=== PATIENT | female | born 1965 | race American Indian/Alaskan Native ===

== ENCOUNTER 2019-06-14 00:31 | Emergency (ER) | payer SELFPAY ==
[2019-06-14] MEDS ORDERED: SODIUM CHLORIDE 0.9% 500 ML 500 ML IV ONE (00:48)
[2019-06-14] MEDS ORDERED: ONDANSETRON 4 MG/2 ML INJ IV ONE (00:48)
[2019-06-14] MEDS ORDERED: MORPHINE 4 MG/1 ML INJ IV ONE (00:48)
--- NOTE | 2019-06-14 00:50 | Emergency Department Report ---
<GAUDENCIO CHAN - Last Filed: 06/14/19 02:53> ED Abdominal Pain HPI - General Chief Complaint: Abdominal Pain Stated Complaint: ABDOMINAL PAIN Time Seen by Provider: 06/14/19 00:33 Source: patient, EMS (Verbal report received from EMS. EMS documentation not available at time of chart dictation ), RN notes reviewed, old records reviewed Mode of arrival: Stretcher Limitations: Physical Limitation - History of Present Illness Initial Comments: Patient is an obese 54-year-old female who is not known to myself previously, brought to the hospital by EMS with a complaint of abdominal pain. Her past medical history includes hypertension, seizure and reactive airway disease. The patient indicates her whole abdomen is hurting her. She points to her left mid flank as the worst area of pain, and also simultaneously points to her right mid abdomen. She is not able to describe the qualitative nature of the pain. She is not able to describe exacerbating or relieving factors. She does not report any history of trauma. She makes no complaint of headache, neck pain, chest pain, shortness of breath, focal extremity weakness and or numbness, or irritative/obstructive urinary symptoms. MD Complaint: abdominal pain -: Gradual, hour(s) Radiation: other Migration to: other Quality: other Consistency: other Improves With: other Worsens With: other Associated Symptoms: other - Related Data Home Medications Medication Instructions Recorded Confirmed Last Taken Albuterol Sulfate [Ventolin HFA] 2 puff IH Q4H PRN 02/25/13 02/25/13 02/25/13 Previous Rx's Medication Instructions Recorded Last Taken Type Fluticasone/Salmeterol [Advair 1 puff IH BID #1 disk.w.dev 02/25/13 Unknown Rx Diskus 250-50 mcg] ALBUTEROL NEB's [Proventil 0.083% 2.5 mg IH Q4H PRN #1 box 03/15/13 Unknown Rx NEBS] Prednisone 20 mg PO QDAY #10 tablet 03/15/13 Unknown Rx Acetaminophen [Non-Aspirin Extra 500 mg PO Q6HR PRN #30 tablet 06/14/19 Unknown Rx Strength] Ibuprofen [Motrin] 400 mg PO Q8H PRN #30 tablet 06/14/19 Unknown Rx Metoclopramide [Reglan] 10 mg PO QID PRN #30 tablet 06/14/19 Unknown Rx Allergies Allergy/AdvReac Type Severity Reaction Status Date / Time No Known Allergies Allergy Verified 04/18/13 14:02 ED Review of Systems Constitutional: malaise Eyes: as per HPI ENT: as per HPI Respiratory: see HPI Cardiovascular: denies: syncope Gastrointestinal: abdominal pain, nausea, vomiting Musculoskeletal: as per HPI Skin: as per HPI Neurological: as per HPI Psychiatric: as per HPI Hematological/Lymphatic: as per HPI ED Past Medical Hx - Past Medical History Hx Hypertension: Yes Hx Seizures: Yes Hx Asthma: Yes - Surgical History Past Surgical History?: No - Social History Smoking Status: Never Smoker - Medications Home Medications: Home Medications Medication Instructions Recorded Confirmed Last Taken Type Albuterol Sulfate [Ventolin HFA] 2 puff IH Q4H PRN 02/25/13 02/25/13 02/25/13 History Fluticasone/Salmeterol [Advair 1 puff IH BID #1 disk.w.dev 02/25/13 Unknown Rx Diskus 250-50 mcg] ALBUTEROL NEB's [Proventil 0.083% 2.5 mg IH Q4H PRN #1 box 03/15/13 Unknown Rx NEBS] Prednisone 20 mg PO QDAY #10 tablet 03/15/13 Unknown Rx Acetaminophen [Non-Aspirin Extra 500 mg PO Q6HR PRN #30 tablet 06/14/19 Unknown Rx Strength] Ibuprofen [Motrin] 400 mg PO Q8H PRN #30 tablet 06/14/19 Unknown Rx Metoclopramide [Reglan] 10 mg PO QID PRN #30 tablet 06/14/19 Unknown Rx ED Physical Exam - General Limitations: Other (Patient is a poor historian) General appearance: alert, anxious, in distress, obese - Head Head exam: Present: atraumatic, normocephalic - Eye Eye exam: Present: normal appearance, EOMI. Absent: nystagmus - ENT ENT exam: Present: normal exam, normal orophraynx, mucous membranes moist, normal external ear exam - Neck Neck exam: Present: normal inspection, full ROM. Absent: tenderness, meningismus - Respiratory Respiratory exam: Present: normal lung sounds bilaterally. Absent: respiratory distress - Cardiovascular Cardiovascular Exam: Present: regular rate, normal rhythm, normal heart sounds. Absent: bradycardia, tachycardia, irregular rhythm, systolic murmur, diastolic murmur, rubs, gallop - GI/Abdominal GI/Abdominal exam: Present: soft. Absent: distended, tenderness, guarding, rebound, rigid, pulsatile mass - Extremities Exam Extremities exam: Present: normal inspection, full ROM, other (2+ pulses noted in the bilateral upper and lower extremities. There is no palpable cord. negative Homans sign. Muscular compartments are soft. The pelvis is stable.). Absent: pedal edema, calf tenderness - Back Exam Back exam: Present: normal inspection, full ROM. Absent: tenderness, CVA tenderness (R), CVA tenderness (L), paraspinal tenderness, vertebral tenderness - Neurological Exam Neurological exam: Present: alert, other (There is no facial droop. The tongue is midline. Extraocular movements are intact bilaterally. There is 5 out of 5 strength in bilateral upper and lower extremities. Sensation is intact to light touch bilateral upper and lower extremities. ) - Psychiatric Psychiatric exam: Present: anxious - Skin Skin exam: Present: warm, dry, intact, normal color. Absent: rash ED Course - Reevaluation(s) Reevaluation #1: 06/14/19 01:44 Differential diagnosis, including not limited to: Cholecystitis, pancreatitis, pyelonephritis, colitis, diverticulitis, constipation, obstruction, perforated viscus, urinary tract infection Assessment and plan: 54-year-old female with poorly characterized abdominal pain, who appears to be in moderate distress. Symptoms are improved with morphine and Zofran. Check laboratory studies, EKG, CT scan abdomen pelvis, and reassess. Reevaluation #2: 06/14/19 02:54 CT scan reviewed and appreciated. Right upper quadrant ultrasound is ordered. Urinalysis pending, repeat EKG, repeat troponin pending. care will be transferred to Dr Rolando Smith to follow up ultrasound, urinalysis, repeat troponin and reassess patient's comfort. ED Medical Decision Making - Lab Data Result diagrams: 06/14/19 01:19 06/14/19 01:19 Lab Results 06/14/19 Range/Units 01:19 WBC 10.3 (4.5-11.0) K/mm3 RBC 4.39 (3.65-5.03) M/mm3 Hgb 12.6 (10.1-14.3) gm/dl Hct 38.0 (30.3-42.9) % MCV 87 (79-97) fl MCH 29 (28-32) pg MCHC 33 (30-34) % RDW 15.1 (13.2-15.2) % Lymph % (Auto) 12.1 L (13.4-35.0) % [place] % (Auto) 5.6 (0.0-7.3) % Eos % (Auto) 1.2 (0.0-4.3) % Baso % (Auto) 0.5 (0.0-1.8) % Lymph # 1.3 (1.2-5.4) K/mm3 [place] # 0.6 (0.0-0.8) K/mm3 Eos # 0.1 (0.0-0.4) K/mm3 Baso # 0.1 (0.0-0.1) K/mm3 Seg Neutrophils % 80.6 H (40.0-70.0) % Seg Neutrophils # 8.3 H (1.8-7.7) K/mm3 Vital Signs 06/14/19 01:00 Pulse Rate 64 Respiratory 25 H Rate Blood Pressure 174/80 [Right] O2 Sat by Pulse 99 Oximetry Lab Results 06/14/19 06/14/19 06/14/19 Range/Units 01:19 01:19 01:19 WBC 10.3 (4.5-11.0) K/mm3 RBC 4.39 (3.65-5.03) M/mm3 Hgb 12.6 (10.1-14.3) gm/dl Hct 38.0 (30.3-42.9) % MCV 87 (79-97) fl MCH 29 (28-32) pg MCHC 33 (30-34) % RDW 15.1 (13.2-15.2) % Lymph % (Auto) 12.1 L (13.4-35.0) % [place] % (Auto) 5.6 (0.0-7.3) % Eos % (Auto) 1.2 (0.0-4.3) % Baso % (Auto) 0.5 (0.0-1.8) % Lymph # 1.3 (1.2-5.4) K/mm3 [place] # 0.6 (0.0-0.8) K/mm3 Eos # 0.1 (0.0-0.4) K/mm3 Baso # 0.1 (0.0-0.1) K/mm3 Seg Neutrophils % 80.6 H (40.0-70.0) % Seg Neutrophils # 8.3 H (1.8-7.7) K/mm3 PT 12.3 (12.2-14.9) Sec. INR 0.91 (0.87-1.13) Sodium 139 (137-145) mmol/L Potassium 4.2 (3.6-5.0) mmol/L Chloride 100.0 (98-107) mmol/L Carbon Dioxide 19 L (22-30) mmol/L Anion Gap 24 mmol/L BUN 18 H (7-17) mg/dL Creatinine 0.8 (0.7-1.2) mg/dL Estimated GFR > 60 ml/min BUN/Creatinine Ratio 23 % Glucose 145 H (65-100) mg/dL Calcium 9.4 (8.4-10.2) mg/dL Magnesium 2.10 (1.7-2.3) mg/dL Total Bilirubin 0.20 (0.1-1.2) mg/dL Direct Bilirubin < 0.2 (0-0.2) mg/dL Indirect Bilirubin 0.0 mg/dL ALT 9 (7-56) units/L Alkaline Phosphatase 120 (35-129) units/L Total Creatine Kinase 137 H (30-135) units/L Troponin T < 0.010 (0.00-0.029) ng/mL Total Protein 8.0 (6.3-8.2) g/dL Albumin 4.3 (3.9-5) g/dL Albumin/Globulin Ratio 1.2 % Lipase 48 (13-60) units/L - EKG Data -: EKG Interpreted by [facility] EKG shows normal: sinus rhythm Rate: normal - EKG Data When compared to previous EKG there are: previous EKG unavailable 06/14/19 02:19 Sinus rhythm, 65 bpm, normal axis, QTC 445 ms, motion artifact, low voltage lateral leads, no prior for comparison, not consistent with ST elevation myocardial infarction. - Radiology Data Radiology results: pending, report reviewed, image reviewed Print Report Referring Physician: GAUDENCIO CHAN Patient Name: DAVID GREGG Date of : 1965 Sex: Female Report Date: 2019-06-14 Report Status: Finalized Findings [facility] [address] [place] [address] Cat Scan Report Signed Patient: DAVID GREGG MR#: [id number] : 1965 Acct:[id number] Age/Sex: 54 / F ADM Date: 06/14/19 Loc: ED Attending Dr: Ordering Physician: GAUDENCIO CHAN MD Date of Service: 06/14/19 Procedure(s): CT abdomen pelvis w con Accession Number(s): [id number] cc: GAUDENCIO CHAN MD CT ABDOMEN AND PELVIS WITH IV CONTRAST INDICATION: Abdominal Pain. COMPARISON: None available. TECHNIQUE: All CT scans at this facility use dose modulation, automated exposure control, iterative reconstruction or weight based dosing, when appropriate, to reduce radiation dose to as low as reasonably achievable. FINDINGS: Lung Bases: There is a 3-4 mm noncalcified nodule in the left lower lobe on series 2 image 28. Skeletal System: No acute abnormality. ABDOMEN: Liver: No significant abnormality. Gallbladder: There are 2 stones in the gallbladder. No gallbladder wall edema or pericholecystic fluid. Bile Ducts: No significant abnormality. Pancreas: No significant abnormality. Spleen: No significant abnormality. Adrenals: No significant abnormality. Right Kidney: No significant abnormality. Left Kidney: No significant abnormality. Upper GI tract: No significant abnormality. Lymph Nodes: No significant adenopathy. Aorta: No significant abnormality. Additional Findings: No significant abnormality. PELVIS: Colon: No acute abnormality. Urinary Bladder and Distal Ureters: No significant abnormality. Appendix: No significant abnormality. Lymph Nodes: No significant adenopathy. Additional Findings: None. IMPRESSION: 1. No acute process in the abdomen or pelvis. 2. Cholelithiasis. 3. 3-4 mm noncalcified left lower lobe pulmonary nodule. See below for follow-up recommendations. INCIDENTAL PULMONARY NODULE RECOMMENDATION Recommendation: Solid Nodule size <6 mm -- Single or Multiple - Low Risk Patient: No routine follow-up - High Risk Patient: Optional CT at 12 months Note These recommendations do not apply to lung cancer screening, patients with immunosuppression, or patients with known primary cancer. Note Newly detected indeterminate nodule in persons 35 years of age or older. Persons under the age of 35 should not receive follow-up unless there is a known primary cancer. Note A Perifissural Nodule is a fissure-attached/subpleural, homogeneous, solid n odule that had smooth margins and an oval, lentiform, or triangular shape. They represent about 20% of nodules detected in lung cancer screening, are invariably benign, and do not require follow-up. Nodules 10 mm or larger (or those with suspicious features) will continue to be managed based on the size criteria. Low Risk Patient -- minimal or absent history of smoking and of other known risk factors. High Risk Patient -- history of smoking or of other known risk factors. Nodule dimensions are average of long and short axes, rounded to the nearest millimeter. Based on 2017 Fleischner Society Guidelines found in Radiology 2017 284:228-243. https://doi.org/10.1148/radiol.3012359437 https://www .ncbi.nlm.nih.gov/pmc/articles/XNS6617556/ Signer Name: Maxim Castillo MD Signed: 06/14/2019 2:46 AM Workstation Name: [id number] Transcribed By: GISSELL Dictated By: Maxim Castillo MD Electronically Authenticated By: Maxim Castillo MD Signed Date/Time: 06/14/19245 DD/ 0 ED Disposition Clinical Impression: Biliary colic Disposition: DC-01 TO HOME OR SELFCARE Condition: Stable Instructions: Abdominal Pain (ED) Additional Instructions: Avoid consumption of heavy and/or spicy foods. Physical activities as tolerated, avoid consumption of alcohol. CT scan abdomen and pelvis showed stones in the gallbladder. Recommend that patient follow-up with a primary care doctor or general surgeon for this within the next [address] scan abdomen pelvis demonstrated nonspecific pulmonary nodule/lung nodule. Recommend follow-up with a primary care doctor for this within the next 2 to 4 months, to exclude cancer, tumor, malignancy. 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 Take the pain medication and nausea medication as needed and directed, do not take metformin medication for the next 2 days, if patient takes this medication, please return to the emergency room right away with new, worsened or different symptoms not present on the initial emergency room evaluation. Prescriptions: Ibuprofen [Motrin] 400 mg PO Q8H PRN #30 tablet PRN Reason: Pain , Severe (7-10) Acetaminophen [Non-Aspirin Extra Strength] 500 mg PO Q6HR PRN #30 tablet PRN Reason: Pain , Severe (7-10) Metoclopramide [Reglan] 10 mg PO QID PRN #30 tablet PRN Reason: Nausea Referrals: LUCIA MUNOZ DO [Staff Physician] - 3-5 Days [facility] [Provider Group] - 3-5 Days [facility] [Provider Group] - 3-5 Days [facility] [Provider Group] - 3-5 Days <REJI SMITH - Last Filed: 06/14/19 04:53> ED Review of Systems ROS: Stated complaint: ABDOMINAL PAIN Other details as noted in HPI ED Course Vital Signs 06/14/19 06/14/19 01:00 02:26 Temperature 97.9 F Pulse Rate 64 84 Respiratory 25 H 20 Rate Blood Pressure 174/80 139/52 [Right] O2 Sat by Pulse 99 95 Oximetry ED Medical Decision Making - Lab Data Result diagrams: 06/14/19 01:19 06/14/19 01:19 - Medical Decision Making Ultrasound revealed cholelithiasis without gross evidence of cholecystitis repeat troponin within normal limits. Patient is discharged home. Critical care attestation.: If time is entered above; I have spent that time in minutes in the direct care of this critically ill patient, excluding procedure time. ED Disposition Is pt being admited?: No Does the pt Need Aspirin: No
[2019-06-14 01:38] LABS: Basophils # (Auto) 0.1 K/mm3 (0.0-0.1); Basophils % (Auto) 0.5 % (0.0-1.8); Eosinophils # (Auto) 0.1 K/mm3 (0.0-0.4); Eosinophils % (Auto) 1.2 % (0.0-4.3); Hemoglobin 12.6 gm/dl (10.1-14.3); Lymphocytes # (Auto) 1.3 K/mm3 (1.2-5.4); Lymphocytes % (Auto) 12.1 % (13.4-35.0); Mean Corpuscular HGB Conc 33 % (30-34); Mean Corpuscular Volume 87 fl (79-97); Monocytes # (Auto) 0.6 K/mm3 (0.0-0.8); Monocytes % (Auto) 5.6 % (0.0-7.3); Red Blood Count 4.39 M/mm3 (3.65-5.03); Red Cell Distribution Width 15.1 % (13.2-15.2)
[2019-06-14 01:49] LABS: INR 0.91 (0.87-1.13)
[2019-06-14] MEDS ORDERED: HYDROmorphone 1 MG/1 ML INJ IV ONE (02:01)
[2019-06-14 02:02] LABS: Alanine Aminotransferase 9 units/L (7-56); Albumin 4.3 g/dL (3.9-5); BUN/Creatinine Ratio 23; Blood Urea Nitrogen 18 mg/dL (7-17); Calcium 9.4 mg/dL (8.4-10.2); Hemolysis Index 56
[2019-06-14 02:03] LABS: Bilirubin,Direct < 0.2 mg/dL (0-0.2)
[2019-06-14 02:29] LABS: Platelet Count 277 K/mm3 (140-440)
--- NOTE | 2019-06-14 02:50 | Cat Scan Report ---
CT ABDOMEN AND PELVIS WITH IV CONTRAST INDICATION: Abdominal Pain. COMPARISON: None available. TECHNIQUE: All CT scans at this facility use dose modulation, automated exposure control, iterative reconstructi on or weight based dosing, when appropriate, to reduce radiation dose to as low as reasonably achieva ble. FINDINGS: Lung Bases: There is a 3-4 mm noncalcified nodule in the left lower lobe on series 2 image 28. Skeletal System: No acute abnormality. ABDOMEN: Liver: No significant abnormality. Gallbladder: There are 2 stones in the gallbladder. No gallbladder wall edema or pericholecystic flui d. Bile Ducts: No significant abnormality. Pancreas: No significant abnormality. Spleen: No significant abnormality. Adrenals: No significant abnormality. Right Kidney: No significant abnormality. Left Kidney: No significant abnormality. Upper GI tract: No significant abnormality. Lymph Nodes: No significant adenopathy. Aorta: No significant abnormality. Additional Findings: No significant abnormality. PELVIS: Colon: No acute abnormality. Urinary Bladder and Distal Ureters: No significant abnormality. Appendix: No significant abnormality. Lymph Nodes: No significant adenopathy. Additional Findings: None. IMPRESSION: 1. No acute process in the abdomen or pelvis. 2. Cholelithiasis. 3. 3-4 mm noncalcified left lower lobe pulmonary nodule. See below for follow-up recommendations. INCIDENTAL PULMONARY NODULE RECOMMENDATION Recommendation: Solid Nodule size <6 mm -- Single or Multiple - Low Risk Patient: No routine follow-up - High Risk Patient: Optional CT at 12 months Note These recommendations do not apply to lung cancer screening, patients with immunosuppression, o r patients with known primary cancer. Note Newly detected indeterminate nodule in persons 35 years of age or older. Persons under the age of 35 should not receive follow-up unless there is a known primary cancer. Note A Perifissural Nodule is a fissure-attached/subpleural, homogeneous, solid nodule that had smoo th margins and an oval, lentiform, or triangular shape. They represent about 20% of nodules detected in lung cancer screening, are invariably benign, and do not require follow-up. Nodules 10 mm or large r (or those with suspicious features) will continue to be managed based on the size criteria. Low Risk Patient -- minimal or absent history of smoking and of other known risk factors. High Risk Patient -- history of smoking or of other known risk factors. Nodule dimensions are average of long and short axes, rounded to the nearest millimeter. Based on 2017 Fleischner Society Guidelines found in Radiology 2017 284:228-243. https://doi.org/10.1148/radiol.8299282240 https://www.ncbi.nlm.nih.gov/pmc/articles/KDF6836720/ Signer Name: Maxim Castillo MD Signed: 06/14/2019 2:46 AM Workstation Name: [id number]
[2019-06-14 03:26] LABS: Bacteria,Urine 1+ /HPF (Negative); Bilirubin,Urine NEG (Negative); Blood,Urine NEG (Negative); Color,Urine Straw (Yellow); Mucus,Urine FEW /HPF; Protein,Urine <15 mg/dL mg/dL (Negative); Urobilinogen,Urine < 2.0 mg/dL (<2.0)
--- NOTE | 2019-06-14 04:19 | Ultrasound Report ---
ULTRASOUND ABDOMEN, LIMITED (RIGHT UPPER QUADRANT) INDICATION: abd pain cholelithiasis. COMPARISON: CT abdomen earlier the same day FINDINGS: Pancreas: Visualized portion shows no significant abnormality. Liver: Normal. Gallbladder: There are 2 stones in the gallbladder, these measure approximately 2 cm. There is mild g allbladder wall edema. Bile ducts: Normal. Common Bile Duct measures 5 mm. Free fluid: None. Additional Findings: None. IMPRESSION: 1. Cholelithiasis with mild gallbladder wall edema. Correlate clinically for acute cholecystitis. The re is no biliary dilatation. Signer Name: Maxim Castillo MD Signed: 06/14/2019 4:14 AM Workstation Name: [id number]
[2019-06-14 05:48] VITALS: BP 142/88
== END 2019-06-14 05:46 | disposition home or self-care (01) ==
LOC: ED 00:31
DX: K80.50 Calculus of bile duct without cholangitis or cholecystitis without obstruction (principal); J45.909 Unspecified asthma, uncomplicated; Z79.899 Other long term (current) drug therapy
CPT/HCPCS: 36415; 74177; 76705; 80048; 80076; 81001; 82550; 83690; 83735; 84484; 85025; 85610; 93005; 93010; 96361; 96374; 96375; 99285; J1170; J2270; J2405; J7040; Q9967